=== PATIENT | female | born 1995 | race Caucasian/White ===

== ENCOUNTER 2021-07-01 11:36 | Emergency (ER) | payer MEDICAID ==
[~2021-07-01] VITALS: Ht 167.6 cm; Wt 53.2 kg
[2021-07-01 14:33] LABS: BASO # 0.01 K/mm3 (0.02-0.10); HEMATOCRIT 40.3 % (37.0-47.0); HEMOGLOBIN 12.8 g/dL (12.5-16.0); LYMPH# 0.81 K/mm3 (1.50-4.00); MEAN CELL VOLUME 80 fl (78-100); MEAN CORPUSCULAR HEMOGLOBIN 25 pg (27-31); MEAN CORPUSCULAR HGB CONC 32 g/dL (33-37); MEAN PLATELET VOLUME 9.7 fl (7.4-10.4); NEU # 5.92 K/mm3 (1.40-6.50); PLATELET COUNT 203 K/mm3 (130-400); RED BLOOD COUNT 5.07 M/mm3 (4.10-5.30); RED CELL DISTRIBUTION WIDTH 13.7 % (11.5-14.5); WHITE BLOOD COUNT 7.2 K/mm3 (4.8-10.8)
[2021-07-01 14:37] LABS: ALBUMIN 3.8 g/dL (3.5-5.0); POTASSIUM 3.8 mmol/L (3.5-5.1)
[2021-07-01 14:38] LABS: CALCIUM 9.1 mg/dL (8.3-10.5)
[2021-07-01 14:39] LABS: TOTAL PROTEIN 7.7 g/dL (6.4-8.3)
[2021-07-01 14:41] LABS: TOTAL BILIRUBIN 0.6 mg/dL (0.2-1.2)
[2021-07-01] MEDS ORDERED: DECADRON 4MG TAB4 MG PO (17:59)
[2021-07-01 18:16] VITALS: BP 90/67
== END 2021-07-01 18:16 | disposition home or self-care (01) ==
LOC: ED 11:36
PROVIDERS: Family Medicine
DX: J02.8 Acute pharyngitis due to other specified organisms (principal); E86.9 Volume depletion, unspecified; Z20.822 Contact with and (suspected) exposure to COVID-19
CPT/HCPCS: J7030